=== PATIENT | male | born 1985 ===

== ENCOUNTER 2022-05-21 06:34 | Emergency (ER) | payer MEDICAID ==
[2022-05-21] MEDS ORDERED: Ketorolac 30 MG/ML SDV IM ONE (06:43)
[2022-05-21] MEDS ORDERED: traMADol 50 MG Tab PO STA (07:16)
== END 2022-05-21 07:40 | disposition home or self-care (01) ==
LOC: FB.ED 06:34
DX: R07.89 Other chest pain (principal); Z79.899 Other long term (current) drug therapy
CPT/HCPCS: 71045; 96372; 99284; A9270; J1885